=== PATIENT | female | born 1970 | race Caucasian/White ===

== ENCOUNTER 2021-03-07 16:11 | Emergency (ER) | payer BC ==
[2021-03-07 16:44] VITALS: BP 140/96; PULSE 86; RESP 16; TEMP 98.1
[2021-03-07] MEDS ORDERED: IBUPROFEN 600 MG TAB PO STA (17:09)
--- NOTE | 2021-03-07 17:30 | ED ---
Lower Extremity Injury HPI - General Chief Complaint: Extremity Injury, Lower Stated Complaint: Knee Injury Time Seen by Provider: 03/07/21 16:47 Source: patient, family Mode of arrival: wheelchair Limitations: no limitations - History of Present Illness Initial Comments: 50-year-old male presents to emergency department with a chief complaint of right knee pain. Patient reports that incident occurred last night when she suffered a trip and fall and fell directly on the right knee. Patient reports the pain is located directly on the knee without any radiation. She reports limited range of motion with full extension and flexion of the knee. She denies any paresthesias or weakness to the knee. She denies any erythema or ecchymosis but does report minimal swelling to right knee. She denies taking medication to alleviate the symptoms. Pain exacerbated with weightbearing or palpation to the region. Denies taking medications to alleviate the symptoms. - Related Data Allergies Allergy/AdvReac Type Severity Reaction Status Date / Time sulfamethoxazole Allergy Swelling Verified 03/07/21 16:39 [From Bactrim] trimethoprim [From Bactrim] Allergy Swelling Verified 03/07/21 16:39 Review of Systems ROS Statement: Those systems with pertinent positive or pertinent negative responses have been documented in the HPI. ROS Other: All systems not noted in ROS Statement are negative. Past Medical History Past Medical History: No Reported History History of Any Multi-Drug Resistant Organisms: None Reported Past Surgical History: Orthopedic Surgery, Tonsillectomy Additional Past Surgical History / Comment(s): brain surgery Past Psychological History: No Psychological Hx Reported Smoking Status: Never smoker Past Alcohol Use History: None Reported Past Drug Use History: None Reported General Exam Limitations: no limitations General appearance: alert, in no apparent distress, obese Head exam: Present: atraumatic, normocephalic, normal inspection Eye exam: Present: normal appearance Pupils: Present: normal accommodation ENT exam: Present: normal exam, normal oropharynx, mucous membranes moist Neck exam: Present: normal inspection, full ROM. Absent: tenderness Respiratory exam: Present: normal lung sounds bilaterally. Absent: respiratory distress Cardiovascular Exam: Present: regular rate, normal rhythm, normal heart sounds Extremities exam: Present: normal inspection, tenderness (Tenderness over the infrapatellar region of the right knee), normal capillary refill, other (Palpable DP and PT bilaterally. Sensation intact in the right leg). Absent: full ROM (Limited range of motion with full flexion and extension), pedal edema, joint swelling, calf tenderness Back exam: Present: normal inspection, full ROM. Absent: tenderness Neurological exam: Present: alert, oriented X3 Psychiatric exam: Present: normal affect, normal mood Skin exam: Present: warm, dry, intact, normal color Course Vital Signs 03/07/21 16:39 Temperature 98.1 F Pulse Rate 86 Respiratory 16 Rate Blood Pressure 140/96 O2 Sat by Pulse 98 Oximetry Medical Decision Making - Medical Decision Making 50-year-old male presents to emergency department with a chief complaint of right knee pain. On physical examination, patient is neurovascularly intact in the right lower extremity. Minimal swelling with no ecchymosis or erythema. Palpable DP and PT bilaterally. Henry wrap will be applied. She was advised to follow-up with an child welfare specialist. X-rays unremarkable. Return parameters were discussed with patient is an attending agreeable. Disposition Clinical Impression: Right knee injury, Right knee pain Disposition: HOME SELF-CARE Condition: Stable Instructions (If sedation given, give patient instructions): Knee Pain (ED) Additional Instructions: Please return to the Emergency Department if symptoms worsen or any other concerns. Follow up with an child welfare specialist. Is patient prescribed a controlled substance at d/c from ED?: No Referrals: Nonstaff,Physician [Primary Care Provider] - 1-2 days Vincenzo Lam DO [Doctor of Osteopathic Medicine] - 1-2 days Time of Disposition: 17:56
--- NOTE | 2021-03-07 17:33 | XR ---
EXAMINATION TYPE: XR knee complete RT DATE OF EXAM: 03/07/2021 COMPARISON: NONE HISTORY: Knee pain TECHNIQUE: 3 views FINDINGS: There is some spurring on the anterior patella. I see no fracture nor dislocation. Joint sp aces are normal. There is no sign of joint effusion. IMPRESSION: Negative right knee exam. No fracture.
== END 2021-03-07 18:11 | disposition home or self-care (01) ==
LOC: EC 16:11
DX: S89.91XA Unspecified injury of right lower leg, initial encounter (principal); M79.89 Other specified soft tissue disorders; Z88.1 Allergy status to other antibiotic agents; Z88.2 Allergy status to sulfonamides; Z90.89 Acquired absence of other organs; W01.0XXA Fall on same level from slipping, tripping and stumbling without subsequent striking against object, initial encounter
CPT/HCPCS: 99283

== ENCOUNTER 2021-07-15 04:06 | Emergency (ER) | payer BC ==
[2021-07-15] MEDS ORDERED: SODIUM CHLORIDE 0.9% 1,000 ML IV STA (04:18)
[2021-07-15] MEDS ORDERED: SODIUM CHLORIDE 0.9% 500 ML 500 ML IV STA (04:18)
[2021-07-15] MEDS ORDERED: KETOROLAC 15 MG/ML 1 ML VIAL IVP STA (04:19)
[2021-07-15] MEDS ORDERED: diphenhydrAMINE 50 MG/ML 1 ML VIAL IVP STA (04:19)
--- NOTE | 2021-07-15 04:19 | ED ---
Weakness HPI - General Stated complaint: Numbness Time Seen by Provider: 07/15/21 04:11 Source: RN notes reviewed, old records reviewed Limitations: no limitations - History of Present Illness Initial comments: This is a 50-year-old female with multiple in specific complaints. Complex and is complaining of tingling and occasional weakness throughout her body. No headaches. She does have prior history of similar complaint no prior ER visits for similar complaint. MD Complaint: generalized weakness -: days(s) Location: generalized Severity: mild Severity scale (1-10): 2 Quality: tingling, numbness Consistency: intermittent Improves with: none Worsens with: none Context: history of similar Associated Symptoms: denies other symptoms - Related Data Previous Rx's Medication Instructions Recorded Ibuprofen [Motrin] 600 mg PO Q8HR PRN #30 tab 03/07/21 predniSONE 50 mg PO DAILY #5 tab 07/15/21 Allergies Allergy/AdvReac Type Severity Reaction Status Date / Time sulfamethoxazole Allergy Swelling Verified 03/07/21 16:39 [From Bactrim] trimethoprim [From Bactrim] Allergy Swelling Verified 03/07/21 16:39 Review of Systems ROS Statement: Those systems with pertinent positive or pertinent negative responses have been documented in the HPI. ROS Other: All systems not noted in ROS Statement are negative. Past Medical History Past Medical History: No Reported History History of Any Multi-Drug Resistant Organisms: None Reported Past Surgical History: Orthopedic Surgery, Tonsillectomy Additional Past Surgical History / Comment(s): brain surgery Past Psychological History: No Psychological Hx Reported Smoking Status: Never smoker Past Alcohol Use History: None Reported Past Drug Use History: None Reported General Exam General appearance: alert, in no apparent distress Head exam: Present: atraumatic, normocephalic, normal inspection Eye exam: Present: normal appearance, PERRL, EOMI. Absent: scleral icterus, conjunctival injection, periorbital swelling ENT exam: Present: normal exam, mucous membranes moist Neck exam: Present: normal inspection. Absent: tenderness, meningismus, lymphadenopathy Respiratory exam: Present: normal lung sounds bilaterally. Absent: respiratory distress, wheezes, rales, rhonchi, stridor Cardiovascular Exam: Present: regular rate, normal rhythm, normal heart sounds. Absent: systolic murmur, diastolic murmur, rubs, gallop, clicks GI/Abdominal exam: Present: soft, normal bowel sounds. Absent: distended, tenderness, guarding, rebound, rigid Extremities exam: Present: normal inspection, full ROM, normal capillary refill. Absent: tenderness, pedal edema, joint swelling, calf tenderness Back exam: Present: normal inspection Neurological exam: Present: alert, oriented X3, CN II-XII intact Psychiatric exam: Present: normal affect, normal mood Skin exam: Present: warm, dry, intact, normal color. Absent: rash Course Vital Signs 07/15/21 05:17 Temperature 98.8 F Pulse Rate 93 Respiratory 18 Rate Blood Pressure 172/113 O2 Sat by Pulse 97 Oximetry - Reevaluation(s) Reevaluation #1: Medical record is reviewed Symptoms improved here in the ER Patient informed results and questions answered EKG Findings - EKG Comments: EKG Findings:: EKG shows sinus rhythm 83 VT 146 QRS 80 QTc 453 Medical Decision Making - Medical Decision Making 50 female to the emergency department for evaluation coming in for generalized tingling. No acute findings found here in the emergency department and patient can be discharged home - Lab Data Result diagrams: 07/15/21 05:36 07/15/21 05:36 Lab Results 07/15/21 07/15/21 07/15/21 Range/Units 05:36 05:36 05:36 WBC 8.5 (3.8-10.6) k/uL RBC 4.76 (3.80-5.40) m/uL Hgb 12.8 (11.4-16.0) gm/dL Hct 40.7 (34.0-46.0) % MCV 85.4 (80.0-100.0) fL MCH 26.8 (25.0-35.0) pg MCHC 31.4 (31.0-37.0) g/dL RDW 15.1 (11.5-15.5) % Plt Count 285 (150-450) k/uL MPV 9.2 Neutrophils % 76 % Lymphocytes % 16 % Monocytes % 5 % Eosinophils % 1 % Basophils % 0 % Neutrophils # 6.4 (1.3-7.7) k/uL Lymphocytes # 1.4 (1.0-4.8) k/uL Monocytes # 0.4 (0-1.0) k/uL Eosinophils # 0.1 (0-0.7) k/uL Basophils # 0.0 (0-0.2) k/uL Sodium 143 (137-145) mmol/L Potassium 4.3 (3.5-5.1) mmol/L Chloride 105 (98-107) mmol/L Carbon Dioxide 29 (22-30) mmol/L Anion Gap 9 mmol/L BUN 11 (7-17) mg/dL Creatinine 0.65 (0.52-1.04) mg/dL Est GFR (CKD-EPI)AfAm >90 (>60 ml/min/1.73 sqM) Est GFR (CKD-EPI)NonAf >90 (>60 ml/min/1.73 sqM) Glucose 125 H (74-99) mg/dL Calcium 9.7 (8.4-10.2) mg/dL Phosphorus 3.4 (2.5-4.5) mg/dL Magnesium 2.0 (1.6-2.3) mg/dL Total Bilirubin 0.4 (0.2-1.3) mg/dL AST 26 (14-36) U/L ALT 33 (4-34) U/L Alkaline Phosphatase 94 (38-126) U/L Troponin I (0.000-0.034) ng/mL NT-Pro-B Natriuret Pep pg/mL Total Protein 7.8 (6.3-8.2) g/dL Albumin 4.6 (3.5-5.0) g/dL Urine Color Colorless Urine Appearance Clear (Clear) Urine pH 5.5 (5.0-8.0) Ur Specific [place] 1.004 (1.001-1.035) Urine Protein Negative (Negative) Urine Glucose (UA) Negative (Negative) Urine Ketones Negative (Negative) Urine Blood Negative (Negative) Urine Nitrite Negative (Negative) Urine Bilirubin Negative (Negative) Urine Urobilinogen <2.0 (<2.0) mg/dL Ur Leukocyte Esterase Negative (Negative) 07/15/21 07/15/21 Range/Units 05:36 05:36 WBC (3.8-10.6) k/uL RBC (3.80-5.40) m/uL Hgb (11.4-16.0) gm/dL Hct (34.0-46.0) % MCV (80.0-100.0) fL MCH (25.0-35.0) pg MCHC (31.0-37.0) g/dL RDW (11.5-15.5) % Plt Count (150-450) k/uL MPV Neutrophils % % Lymphocytes % % Monocytes % % Eosinophils % % Basophils % % Neutrophils # (1.3-7.7) k/uL Lymphocytes # (1.0-4.8) k/uL Monocytes # (0-1.0) k/uL Eosinophils # (0-0.7) k/uL Basophils # (0-0.2) k/uL Sodium (137-145) mmol/L Potassium (3.5-5.1) mmol/L Chloride (98-107) mmol/L Carbon Dioxide (22-30) mmol/L Anion Gap mmol/L BUN (7-17) mg/dL Creatinine (0.52-1.04) mg/dL Est GFR (CKD-EPI)AfAm (>60 ml/min/1.73 sqM) Est GFR (CKD-EPI)NonAf (>60 ml/min/1.73 sqM) Glucose (74-99) mg/dL Calcium (8.4-10.2) mg/dL Phosphorus (2.5-4.5) mg/dL Magnesium (1.6-2.3) mg/dL Total Bilirubin (0.2-1.3) mg/dL AST (14-36) U/L ALT (4-34) U/L Alkaline Phosphatase (38-126) U/L Troponin I <0.012 (0.000-0.034) ng/mL NT-Pro-B Natriuret Pep 16 pg/mL Total Protein (6.3-8.2) g/dL Albumin (3.5-5.0) g/dL Urine Color Urine Appearance (Clear) Urine pH (5.0-8.0) Ur Specific [place] (1.001-1.035) Urine Protein (Negative) Urine Glucose (UA) (Negative) Urine Ketones (Negative) Urine Blood (Negative) Urine Nitrite (Negative) Urine Bilirubin (Negative) Urine Urobilinogen (<2.0) mg/dL Ur Leukocyte Esterase (Negative) - Radiology Data Radiology results: report reviewed (CT brain and chest x-ray is negative for acute disease), image reviewed Disposition Clinical Impression: Weakness Disposition: HOME SELF-CARE Condition: Fair Instructions (If sedation given, give patient instructions): Weakness (ED) Prescriptions: predniSONE 50 mg PO DAILY #5 tab Is patient prescribed a controlled substance at d/c from ED?: No Referrals: Nonstaff,Physician [Primary Care Provider] - 1-2 days
--- NOTE | 2021-07-15 04:32 | XR ---
EXAMINATION TYPE: XR chest 2V DATE OF EXAM: 07/15/2021 COMPARISON: NONE HISTORY: Weakness TECHNIQUE: 2 views FINDINGS: Heart and mediastinum are normal. Lungs are clear. Diaphragm is normal. Bony thorax is norm al. IMPRESSION: Normal chest.
--- NOTE | 2021-07-15 04:51 | CT ---
EXAMINATION TYPE: CT brain wo con DATE OF EXAM: 07/15/2021 COMPARISON: None HISTORY: head pressure/pain. numbness. prior brain surgery CT DLP: 1048.4 mGycm Automated exposure control for dose reduction was used. Ventricles have normal size. There is no mass effect or midline shift. There is no sign of intracrani al hemorrhage. The calvarium is intact there is no evidence of cerebral edema. Skull base is intact. There is normal aeration of the mastoid sinuses. IMPRESSION: Negative unenhanced head CT scan.
[2021-07-15 05:20] VITALS: BP 172/113; PULSE 93; RESP 18; TEMP 98.8
[2021-07-15 06:10] LABS: Basophils % (A) 0 %; Eosinophils # (A) 0.1 k/uL (0-0.7); Eosinophils % (A) 1 %; HCT 40.7 % (34.0-46.0); HGB 12.8 gm/dL (11.4-16.0); Lymphocytes # (A) 1.4 k/uL (1.0-4.8); Lymphocytes % (A) 16 %; MCH 26.8 pg (25.0-35.0); MCHC 31.4 g/dL (31.0-37.0); MCV 85.4 fL (80.0-100.0); Mean Platelet Volume 9.2; Monocytes # (A) 0.4 k/uL (0-1.0); Monocytes % (A) 5 %; Neutrophils # (A) 6.4 k/uL (1.3-7.7); Neutrophils % (A) 76 %; Platelet Count 285 k/uL (150-450); RBC 4.76 m/uL (3.80-5.40); RDW 15.1 % (11.5-15.5); WBC 8.5 k/uL (3.8-10.6)
[2021-07-15 06:26] LABS: Appearance,Urine Clear (Clear); Bilirubin,Urine Negative (Negative); Blood,Urine Negative (Negative); Color,Urine Colorless; Glucose,Urine (UA) Negative (Negative); Ketones,Urine Negative (Negative); Leukocyte Esterase,Urine Negative (Negative); Nitrite,Urine Negative (Negative); PH, Urine 5.5 (5.0-8.0); Protein,Urine Negative (Negative); Specific Gravity,Urine 1.004 (1.001-1.035); Urobilinogen,Urine <2.0 mg/dL (<2.0)
[2021-07-15 06:30] LABS: ALT 33 U/L (4-34); AST 26 U/L (14-36); African American GFR (CKD) >90 (>60 ml/min/1.73 sqM); Albumin 4.6 g/dL (3.5-5.0); Alkaline Phosphatase 94 U/L (38-126); Anion Gap 9 mmol/L; Blood Urea Nitrogen 11 mg/dL (7-17); Calcium 9.7 mg/dL (8.4-10.2); Carbon Dioxide 29 mmol/L (22-30); Chloride 105 mmol/L (98-107); Glucose 125 mg/dL (74-99); Non-African American GFR(CKD) >90 (>60 ml/min/1.73 sqM); Phosphorus 3.4 mg/dL (2.5-4.5); Potassium 4.3 mmol/L (3.5-5.1); Sodium 143 mmol/L (137-145); Total Bilirubin 0.4 mg/dL (0.2-1.3); Total Protein 7.8 g/dL (6.3-8.2)
== END 2021-07-15 06:55 | disposition home or self-care (01) ==
LOC: EC 04:06
DX: R53.1 Weakness (principal)
CPT/HCPCS: 36415; 93005; 83880; 80053; 83735; 84100; 84484; 85025; 81003; 71046; 70450; 99285; 96374; 96375; J1200; J1885

== ENCOUNTER 2022-07-11 20:25 | Emergency (ER) | payer BC ==
[2022-07-11 21:26] LABS: Basophils % (A) 1 %; Eosinophils # (A) 0.2 k/uL (0-0.7); Eosinophils % (A) 2 %; HCT 39.7 % (34.0-46.0); HGB 13.3 gm/dL (11.4-16.0); Lymphocytes # (A) 2.5 k/uL (1.0-4.8); Lymphocytes % (A) 27 %; MCH 28.1 pg (25.0-35.0); MCHC 33.5 g/dL (31.0-37.0); MCV 83.8 fL (80.0-100.0); Mean Platelet Volume 10.1; Monocytes # (A) 0.5 k/uL (0-1.0); Monocytes % (A) 5 %; Neutrophils # (A) 5.9 k/uL (1.3-7.7); Neutrophils % (A) 63 %; Platelet Count 235 k/uL (150-450); RBC 4.73 m/uL (3.80-5.40); RDW 13.9 % (11.5-15.5); WBC 9.3 k/uL (3.8-10.6)
[2022-07-11 21:39] LABS: Appearance,Urine Clear (Clear); Bacteria,Urine Rare /hpf; Bilirubin,Urine Negative (Negative); Blood,Urine Negative (Negative); Color,Urine Colorless; Glucose,Urine (UA) Negative (Negative); Hyaline Casts,Urine 1 /lpf (0-2); Ketones,Urine Negative (Negative); Leukocyte Esterase,Urine Moderate (Negative); Mucus,Urine Rare /hpf; Nitrite,Urine Negative (Negative); PH, Urine 5.5 (5.0-8.0); Protein,Urine Negative (Negative); RBC,Urine 1 /hpf (0-5); Specific Gravity,Urine 1.007 (1.001-1.035); Squamous Epithelial Cell,Urine 3 /hpf (0-4); Urobilinogen,Urine <2.0 mg/dL (<2.0); WBC,Urine 9 /hpf (0-5)
[2022-07-11 21:44] LABS: ALT 34 U/L (4-34); AST 22 U/L (14-36); African American GFR (CKD) >90 (>60 ml/min/1.73 sqM); Albumin 4.4 g/dL (3.5-5.0); Alkaline Phosphatase 83 U/L (38-126); Amylase 50 U/L (30-110); Anion Gap 7 mmol/L; Blood Urea Nitrogen 13 mg/dL (7-17); Calcium 9.4 mg/dL (8.4-10.2); Carbon Dioxide 30 mmol/L (22-30); Chloride 104 mmol/L (98-107); Glucose 88 mg/dL (74-99); Lipase 111 U/L (23-300); Non-African American GFR(CKD) >90 (>60 ml/min/1.73 sqM); Potassium 3.7 mmol/L (3.5-5.1); Sodium 141 mmol/L (137-145); Total Bilirubin 0.4 mg/dL (0.2-1.3); Total Protein 7.3 g/dL (6.3-8.2)
--- NOTE | 2022-07-11 23:47 | US ---
EXAMINATION TYPE: US abdomen limited DATE OF EXAM: 07/11/2022 COMPARISON: NONE CLINICAL HISTORY: RUQ pain. RUQ pain TECHNIQUE: Multiple sonographic images of the right upper quadrant are obtained. FINDINGS: EXAM MEASUREMENTS: Liver Length: 22.7 cm Gallbladder Wall: 0.13 cm CBD: 0.22 cm Right Kidney: 12.4 x 6.7 x 6.1 cm HOSTING ENGINEER NOTES: Pancreas: Obscured by bowel gas Liver: Heterogeneous and difficult to penetrate Gallbladder: wnl Evidence for sonographic Billingsley's sign: No CBD: not well visualized, appears wnl Right Kidney: wnl IMPRESSION: Negative exam. No gallstones or dilated ducts. No focal liver defect.
[2022-07-11] MEDS ORDERED: ORPHENADRINE 30 MG/ML 2 ML VIAL IVP STA (23:53)
[2022-07-11] MEDS ORDERED: KETOROLAC 15 MG/ML 1 ML VIAL IVP STA (23:53)
--- NOTE | 2022-07-12 01:11 | ED ---
Abdominal Pain HPI - General Chief Complaint: Abdominal Pain Stated Complaint: Right Side Pain, Bloating, Tail bone Pain Time Seen by Provider: 07/11/22 22:44 Source: patient Mode of arrival: ambulatory Limitations: no limitations - History of Present Illness Initial Comments: Patient is a 51-year-old female presenting with chief complaint of right side pain. Pain is been ongoing for the last month. Patient states that the pain is predominantly in the flank, she also occasionally has right upper quadrant pain. No fever, chills, nausea, vomiting, chest pain, difficulty breathing. Patient also states that her tailbone has been hurting her when she sits for long periods of time. Denies any injury or trauma. No loss of bowel or bladder co ntrol or saddle paresthesia. - Related Data Previous Rx's Medication Instructions Recorded Ibuprofen [Motrin] 600 mg PO Q8HR PRN #30 tab 03/07/21 predniSONE 50 mg PO DAILY #5 tab 07/15/21 Allergies Allergy/AdvReac Type Severity Reaction Status Date / Time sulfamethoxazole Allergy Swelling Verified 03/07/21 16:39 [From Bactrim] trimethoprim [From Bactrim] Allergy Swelling Verified 03/07/21 16:39 Review of Systems ROS Statement: Those systems with pertinent positive or pertinent negative responses have been documented in the HPI. ROS Other: All systems not noted in ROS Statement are negative. 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 History of Any Multi-Drug Resistant Organisms: None Reported Past Surgical History: Orthopedic Surgery, Tonsillectomy Additional Past Surgical History / Comment(s): brain surgery Past Psychological History: No Psychological Hx Reported Smoking Status: Never smoker Past Alcohol Use History: None Reported Past Drug Use History: None Reported General Exam Limitations: no limitations General appearance: alert, in no apparent distress Head exam: Present: atraumatic, normocephalic, normal inspection Eye exam: Present: normal appearance Neck exam: Present: normal inspection, full ROM Respiratory exam: Present: normal lung sounds bilaterally. Absent: respiratory distress, wheezes, rales, rhonchi, stridor Cardiovascular Exam: Present: regular rate, normal rhythm, normal heart sounds. Absent: systolic murmur, diastolic murmur, rubs, gallop, clicks GI/Abdominal exam: Present: soft, tenderness (R sided). Absent: distended, guarding, rebound, rigid Back exam: Present: normal inspection Neurological exam: Present: alert, oriented X3, CN II-XII intact Psychiatric exam: Present: normal affect, normal mood Skin exam: Present: warm, dry, intact, normal color. Absent: rash Course Vital Signs 07/11/22 07/12/22 20:32 01:36 Temperature 98 F 97.6 F Pulse Rate 90 82 Respiratory 16 14 Rate Blood Pressure 184/106 148/76 O2 Sat by Pulse 98 99 Oximetry Medical Decision Making - Medical Decision Making Was pt. sent in by a medical professional or institution (, PA, QUALITY MEASUREMENT SPECIALIST, urgent care, hospital, or group home...) When possible be specific @ -No Did you speak to anyone other than the patient for history (EMS, parent, family, police, friend...)? What history was obtained from this source @ -No Did you review nursing and triage notes (agree or disagree)? Why? @ -I reviewed and agree with nursing and triage notes Were old charts reviewed (outside hosp., previous admission, EMS record, old EKG, old radiological studies, urgent care reports/EKG's, group home records)? Report findings @ -No old charts were reviewed Differential Diagnosis (chest pain, altered mental status, abdominal pain women, abdominal pain men, vaginal bleeding, weakness, fever, dyspnea, syncope, headache, dizziness, GI bleed, back pain, seizure, CVA, palpatations, mental health)? @ - MDM Differential Back Pain: Strain, zoster, cauda equina syndrome, discitis, fracture, subluxation, disc herniation, DJD, spinal stenosis, peptic ulcer disease, pyelonephritis, kidney stone this is not meant to be an all-inclusive list. EKG interpreted by me (3pts min.). @ -As above X-rays interpreted by me (1pt min.). @ -X-ray of the lumbar spine shows no acute process CT interpreted by me (1pt min.). @ -None done U/S interpreted by me (1pt. min.). @ -No, radiologist report is reviewed. Negative exam. No gallstones or dilated ducts. No focal liver defect What testing was considered but not performed or refused? (CT, X-rays, U/S, labs)? Why? @ -None What meds were considered but not given or refused? Why? @ -None Did you discuss the management of the patient with other professionals (pr ofessionals i.e. , PA, QUALITY MEASUREMENT SPECIALIST, lab, RT, psych nurse, director social service, industrial gas production operator, teacher, chief fundraising officer, bilingual case manager)? Give summary @ -No Was smoking cessation discussed for >3mins.? @ -No Was critical care preformed (if so, how long)? @ -No Were there social determinants of health that impacted care today? How? (Homelessness, low income, unemployed, alcoholism, drug addiction, transport ation, low edu. Level, literacy, decrease access to med. care, fci, rehab)? @ -No Was there de-escalation of care discussed even if they declined (Discuss DNR or withdrawal of care, Hospice)? DNR status @ -No What co-morbidities impacted this encounter? (DM, HTN, Smoking, COPD, CAD, Cancer, CVA, ARF, Chemo, Hep., AIDS, mental health diagnosis, sleep apnea, morbid obesity)? @ -None Was patient admitted / discharged? Hospital course, mention meds given and route, prescriptions, significant lab abnormalities, going to OR and other pertinent info. @ -Patient is a 51-year-old female presenting with chief complaint of right- sided flank pain that is been ongoing for the last month. Physical examination is unremarkable. Lab work shows is essentially unremarkable. Urine shows signs of contamination, sent for culture. Ultrasound of the abdomen shows no acute process. Lumbar spine shows no evidence of fracture. Patient reports improvement after Toradol and Norflex. Pain is likely musculoskeletal in origin. Educated on supportive treatment.Follow-up with PCP. Report back to ER with any new or worsening symptoms. Discussed return parameters and answered all questions. Patient conveyed verbal understanding and agreed to the plan. I discussed this case in detail with my attending Dr. Laura Undiagnosed new problem with uncertain prognosis? @ -No Drug Therapy requiring intensive monitoring for toxicity (Heparin, Nitro, Insulin, Cardizem)? @ -No Were any procedures done? @ -No Diagnosis/symptom? @ -muscloskeletal pain Acute, or Chronic, or Acute on Chronic? @ -Acute Uncomplicated (without systemic symptoms) or Complicated (systemic symptoms)? @ -Uncomplicated Side effects of treatment? @ -No Exacerbation, Progression, or Severe Exacerbation? @ -No Poses a threat to life or bodily function? How? (Chest pain, [place], NM, pneumonia, PE, COPD, DKA, ARF, appy, cholecystitis, CVA, Diverticulitis, Homicidal, Suicidal, threat to staff... and all critical care pts) @ -No - Lab Data Result diagrams: 07/11/22 20:37 07/11/22 20:37 Lab Results 07/11/22 07/11/22 07/11/22 Range/Units 20:37 20:37 20:37 WBC 9.3 (3.8-10.6) k/uL RBC 4.73 (3.80-5.40) m/uL Hgb 13.3 (11.4-16.0) gm/dL Hct 39.7 (34.0-46.0) % MCV 83.8 (80.0-100.0) fL MCH 28.1 (25.0-35.0) pg MCHC 33.5 (31.0-37.0) g/dL RDW 13.9 (11.5-15.5) % Plt Count 235 (150-450) k/uL MPV 10.1 Neutrophils % 63 % Lymphocytes % 27 % Monocytes % 5 % Eosinophils % 2 % Basophils % 1 % Neutrophils # 5.9 (1.3-7.7) k/uL Lymphocytes # 2.5 (1.0-4.8) k/uL Monocytes # 0.5 (0-1.0) k/uL Eosinophils # 0.2 (0-0.7) k/uL Basophils # 0.0 (0-0.2) k/uL Sodium 141 (137-145) mmol/L Potassium 3.7 (3.5-5.1) mmol/L Chloride 104 (98-107) mmol/L Carbon Dioxide 30 (22-30) mmol/L Anion Gap 7 mmol/L BUN 13 (7-17) mg/dL Creatinine 0.70 (0.52-1.04) mg/dL Est GFR (CKD-EPI)AfAm >90 (>60 ml/min/1.73 sqM) Est GFR (CKD-EPI)NonAf >90 (>60 ml/min/1.73 sqM) Glucose 88 (74-99) mg/dL Calcium 9.4 (8.4-10.2) mg/dL Total Bilirubin 0.4 (0.2-1.3) mg/dL AST 22 (14-36) U/L ALT 34 (4-34) U/L Alkaline Phosphatase 83 (38-126) U/L Troponin I <0.012 (0.000-0.034) ng/mL Total Protein 7.3 (6.3-8.2) g/dL Albumin 4.4 (3.5-5.0) g/dL Amylase 50 (30-110) U/L Lipase 111 (23-300) U/L Urine Color Urine Appearance (Clear) Urine pH (5.0-8.0) Ur Specific [place] (1.001-1.035) Urine Protein (Negative) Urine Glucose (UA) (Negative) Urine Ketones (Negative) Urine Blood (Negative) Urine Nitrite (Negative) Urine Bilirubin (Negative) Urine Urobilinogen (<2.0) mg/dL Ur Leukocyte Esterase (Negative) Urine RBC (0-5) /hpf Urine WBC (0-5) /hpf Ur Squamous Epith Cells (0-4) /hpf Urine Bacteria (None) /hpf Hyaline Casts (0-2) /lpf Urine Mucus (None) /hpf Urine HCG, Qual (Not Detectd) 07/11/22 07/11/22 Range/Units 21:01 21:01 WBC (3.8-10.6) k/uL RBC (3.80-5.40) m/uL Hgb (11.4-16.0) gm/dL Hct (34.0-46.0) % MCV (80.0-100.0) fL MCH (25.0-35.0) pg MCHC (31.0-37.0) g/dL RDW (11.5-15.5) % Plt Count (150-450) k/uL MPV Neutrophils % % Lymphocytes % % Monocytes % % Eosinophils % % Basophils % % Neutrophils # (1.3-7.7) k/uL Lymphocytes # (1.0-4.8) k/uL Monocytes # (0-1.0) k/uL Eosinophils # (0-0.7) k/uL Basophils # (0-0.2) k/uL Sodium (137-145) mmol/L Potassium (3.5-5.1) mmol/L Chloride (98-107) mmol/L Carbon Dioxide (22-30) mmol/L Anion Gap mmol/L BUN (7-17) mg/dL Creatinine (0.52-1.04) mg/dL Est GFR (CKD-EPI)AfAm (>60 ml/min/1.73 sqM) Est GFR (CKD-EPI)NonAf (>60 ml/min/1.73 sqM) Glucose (74-99) mg/dL Calcium (8.4-10.2) mg/dL Total Bilirubin (0.2-1.3) mg/dL AST (14-36) U/L ALT (4-34) U/L Alkaline Phosphatase (38-126) U/L Troponin I (0.000-0.034) ng/mL Total Protein (6.3-8.2) g/dL Albumin (3.5-5.0) g/dL Amylase (30-110) U/L Lipase (23-300) U/L Urine Color Colorless Urine Appearance Clear (Clear) Urine pH 5.5 (5.0-8.0) Ur Specific [place] 1.007 (1.001-1.035) Urine Protein Negative (Negative) Urine Glucose (UA) Negative (Negative) Urine Ketones Negative (Negative) Urine Blood Negative (Negative) Urine Nitrite Negative (Negative) Urine Bilirubin Negative (Negative) Urine Urobilinogen <2.0 (<2.0) mg/dL Ur Leukocyte Esterase Moderate H (Negative) Urine RBC 1 (0-5) /hpf Urine WBC 9 H (0-5) /hpf Ur Squamous Epith Cells 3 (0-4) /hpf Urine Bacteria Rare H (None) /hpf Hyaline Casts 1 (0-2) /lpf Urine Mucus Rare H (None) /hpf Urine HCG, Qual Not Detected (Not Detectd) Disposition Clinical Impression: Musculoskeletal pain Disposition: HOME SELF-CARE Condition: Good Instructions (If sedation given, give patient instructions): Musculoskeletal Pain (ED) Additional Instructions: Follow-up with PCP. Report back to ER with any new or worsening symptoms. Take Motrin and Tylenol as needed for pain control. Is patient prescribed a controlled substance at d/c from ED?: No Referrals: Nonstaff,Physician [Primary Care Provider] - 1-2 days Time of Disposition: 01:18
--- NOTE | 2022-07-12 01:11 | XR ---
EXAMINATION TYPE: XR lumbosacral spine min 4V DATE OF EXAM: 07/12/2022 COMPARISON: NONE HISTORY: Pain TECHNIQUE: 5 views FINDINGS: The lumbar vertebrae have normal alignment. Posterior elements are intact. No compression f racture. There is minor spurring at L4-5. Sacroiliac joints are intact. IMPRESSION: Negative lumbar spine exam. No fracture
[2022-07-12 01:48] VITALS: BP 148/76; PULSE 82; RESP 14; TEMP 97.6
== END 2022-07-12 01:49 | disposition home or self-care (01) ==
LOC: EC 20:25
DX: M79.18 Myalgia, other site (principal); Z88.2 Allergy status to sulfonamides
CPT/HCPCS: 36415; 72110; 76705; 80053; 81001; 81025; 82150; 83690; 84484; 85025; 96374; 96375; 99284

== ENCOUNTER 2023-01-17 16:32 | Emergency (ER) | payer BC ==
[2023-01-17 16:38] VITALS: PULSE 78; RESP 20; TEMP 98.7
[2023-01-17 18:36] VITALS: BP 151/91
--- NOTE | 2023-01-17 18:58 | ED ---
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 Patient states that she follows with a neurologist for this and she has been told not to sleep on her left side due to it exacerbating her symptoms. Patient reports that this morning she woke up early and wanted to go back to sleep for a couple of hours, she rolled over on her left side but then noted that her left arm was tingling and seemed to be throbbing or pulsating in her hand. This is very atypical for her. She also noted some pain in her upper left chest which seemed to be worse when she turned her head to the left. No shortness of breath diaphoresis or lightheadedness. Symptoms resolved within 30 minutes of waking. Patient states she then didn't feel up to going to work because she was tired and she got very nervous about her symptoms and thought she should come to the ER for evaluation. - Related Data Previous Rx's Medication Instructions Recorded Ibuprofen [Motrin] 600 mg PO Q8HR PRN #30 tab 03/07/21 predniSONE 50 mg PO DAILY #5 tab 07/15/21 Allergies Allergy/AdvReac Type Severity Reaction Status Date / Time sulfamethoxazole Allergy Swelling Verified 01/17/23 16:38 [From Bactrim] trimethoprim [From Bactrim] Allergy Swelling Verified 01/17/23 16:38 Review of Systems ROS Statement: Those systems with pertinent positive or pertinent negative responses have been documented in the HPI. ROS Other: All systems not noted in ROS Statement are negative. 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 Patient is nontoxic and well-hydrated and is in no distress. BMI 39 HENT: Normocephalic, Atraumatic. EYES: PERRL, EOMI PULMONARY: Unlabored respirations. No audible rales rhonchi or wheezing was noted. CARDIOVASCULAR: There is a regular rate and rhythm without any murmurs gallops or rubs. ABDOMEN: Soft and nontender with normal bowel sounds. SKIN: Skin is clear with no lesions or rashes and otherwise unremarkable. : Deferred NEUROLOGIC: Patient is alert and oriented x3. Moving all extremities spontaneously Positive tinnel's sign left hand for carpal tunnel MUSCULOSKELETAL: Normal extremities with adequate strength and full range of motion. No lower extremity swelling or edema. No calf tenderness. PSYCHIATRIC: Normal psychiatric evaluation. Limitations: no limitations Course Vital Signs 01/17/23 01/17/23 16:35 18:31 Temperature 98.7 F Pulse Rate 78 Respiratory 20 Rate Blood Pressure 168/96 151/91 O2 Sat by Pulse 99 Oximetry Medical Decision Making - Medical Decision Making The patient was seen and evaluated history is obtained from the patient. 52-year-old female with known slipped disc in her neck and neuropathy in the arm slept on her arm away she is not supposed to and had pain and tingling in the arm. Also some pain across the chest. Cardiac workup was negative. At this time I don't feel her discomfort is cardiac in nature likely neurologic in nature recommended follow with her primary care physician. Was pt. sent in by a medical professional or institution (, PA, DECORATING INSTRUCTOR, urgent care, hospital, or senior care...) When possible be specific @ -No Did you speak to anyone other than the patient for history (EMS, parent, family, police, friend...)? What history was obtained from this source @ -No Did you review nursing and triage notes (agree or disagree)? Why? @ -I reviewed and agree with nursing and triage notes Were old charts reviewed (outside hosp., previous admission, EMS record, old EKG, old radiological studies, urgent care reports/EKG's, senior care records)? Report findings @ -No old charts were reviewed Differential Diagnosis (chest pain, altered mental status, abdominal pain women, abdominal pain men, vaginal bleeding, weakness, fever, dyspnea, syncope, headache, dizziness, GI bleed, back pain, seizure, CVA, palpatations, mental health, musculoskeletal)? @ -Differential Chest Pain: Stable Angina, Unstable Angina, STEMI, NSTEMI Aortic Dissection, Pneumothorax, Musculoskeletal, Esophageal Spasm GERD, Cholecystitis, Pancreatitis, Zoster, this is not meant to be an all-inclusive list. EKG interpreted by me (3pts min.). @ -As above X-rays interpreted by me (1pt min.). @ -None done CT interpreted by me (1pt min.). @ -None done U/S interpreted by me (1pt. min.). @ -None done What testing was considered but not performed or refused? (CT, X-rays, U/S, labs)? Why? @ -None What meds were considered but not given or refused? Why? @ -None Did you discuss the management of the patient with other professionals (professionals i.e. , PA, DECORATING INSTRUCTOR, lab, RT, psych nurse, social media designer, feed and farm management adviser, teacher, highway patrol officer, case specialist)? Give summary @ -No Was smoking cessation discussed for >3mins.? @ -No Was critical care preformed (if so, how long)? @ -No Were there social determinants of health that impacted care today? How? (Homelessness, low income, unemployed, alcoholism, drug addiction, transportation, low edu. Level, literacy, decrease access to med. care, [facility], rehab)? @ -No Was there de-escalation of care discussed even if they declined (Discuss DNR or withdrawal of care, Hospice)? DNR status @ -No What co-morbidities impacted this encounter? (DM, HTN, Smoking, COPD, CAD, Cancer, CVA, ARF, Chemo, Hep., AIDS, mental health diagnosis, sleep apnea, morbid obesity)? @ -None Was patient admitted / discharged? Hospital course, mention meds given and route, prescriptions, significant lab abnormalities, going to OR and other pertinent info. @Discharge] Undiagnosed new problem with uncertain prognosis? @ -No Drug Therapy requiring intensive monitoring for toxicity (Heparin, Nitro, Insulin, Cardizem)? @ -No Were any procedures done? @ -No Diagnosis/symptom? @ -default Acute, or Chronic, or Acute on Chronic? @ -default Uncomplicated (without systemic symptoms) or Complicated (systemic symptoms)? @ -default Side effects of treatment? @ -No Exacerbation, Progression, or Severe Exacerbation? @ -No Poses a threat to life or bodily function? How? (Chest pain, [place], [place], pneumonia, PE, COPD, DKA, ARF, appy, cholecystitis, CVA, Diverticulitis, Homicidal, Suicidal, threat to staff... and all critical care pts) @ -No - Lab Data Result diagrams: 01/17/23 18:46 01/17/23 18:46 Lab Results 01/17/23 01/17/23 01/17/23 Range/Units 18:46 18:46 18:46 WBC 8.4 (3.8-10.6) k/uL RBC 4.65 (3.80-5.40) m/uL Hgb 13.5 (11.4-16.0) gm/dL Hct 40.3 (34.0-46.0) % MCV 86.6 (80.0-100.0) fL MCH 29.0 (25.0-35.0) pg MCHC 33.4 (31.0-37.0) g/dL RDW 14.3 (11.5-15.5) % Plt Count 216 (150-450) k/uL MPV 10.0 Neutrophils % 67 % Lymphocytes % 23 % Monocytes % 5 % Eosinophils % 3 % Basophils % 0 % Neutrophils # 5.6 (1.3-7.7) k/uL Lymphocytes # 1.9 (1.0-4.8) k/uL Monocytes # 0.5 (0-1.0) k/uL Eosinophils # 0.2 (0-0.7) k/uL Basophils # 0.0 (0-0.2) k/uL PT 9.7 (9.0-12.0) sec INR 0.9 (<1.2) APTT 24.6 (22.0-30.0) sec Sodium 139 (137-145) mmol/L Potassium 4.0 (3.5-5.1) mmol/L Chloride 102 (98-107) mmol/L Carbon Dioxide 27 (22-30) mmol/L Anion Gap 10 mmol/L BUN 13 (7-17) mg/dL Creatinine 0.60 (0.52-1.04) mg/dL Est GFR (CKD-EPI)AfAm >90 (>60 ml/min/1.73 sqM) Est GFR (CKD-EPI)NonAf >90 (>60 ml/min/1.73 sqM) Glucose 90 (74-99) mg/dL Calcium 9.3 (8.4-10.2) mg/dL Magnesium 2.0 (1.6-2.3) mg/dL Total Bilirubin 0.4 (0.2-1.3) mg/dL AST 28 (14-36) U/L ALT 37 H (4-34) U/L Alkaline Phosphatase 89 (38-126) U/L Troponin I (0.000-0.034) ng/mL Total Protein 7.3 (6.3-8.2) g/dL Albumin 4.2 (3.5-5.0) g/dL 01/17/23 Range/Units 18:46 WBC (3.8-10.6) k/uL RBC (3.80-5.40) m/uL Hgb (11.4-16.0) gm/dL Hct (34.0-46.0) % MCV (80.0-100.0) fL MCH (25.0-35.0) pg MCHC (31.0-37.0) g/dL RDW (11.5-15.5) % Plt Count (150-450) k/uL MPV Neutrophils % % Lymphocytes % % Monocytes % % Eosinophils % % Basophils % % Neutrophils # (1.3-7.7) k/uL Lymphocytes # (1.0-4.8) k/uL Monocytes # (0-1.0) k/uL Eosinophils # (0-0.7) k/uL Basophils # (0-0.2) k/uL PT (9.0-12.0) sec INR (<1.2) APTT (22.0-30.0) sec Sodium (137-145) mmol/L Potassium (3.5-5.1) mmol/L Chloride (98-107) mmol/L Carbon Dioxide (22-30) mmol/L Anion Gap mmol/L BUN (7-17) mg/dL Creatinine (0.52-1.04) mg/dL Est GFR (CKD-EPI)AfAm (>60 ml/min/1.73 sqM) Est GFR (CKD-EPI)NonAf (>60 ml/min/1.73 sqM) Glucose (74-99) mg/dL Calcium (8.4-10.2) mg/dL Magnesium (1.6-2.3) mg/dL Total Bilirubin (0.2-1.3) mg/dL AST (14-36) U/L ALT (4-34) U/L Alkaline Phosphatase (38-126) U/L Troponin I <0.012 (0.000-0.034) ng/mL Total Protein (6.3-8.2) g/dL Albumin (3.5-5.0) g/dL Disposition Clinical Impression: Chest wall pain Disposition: HOME SELF-CARE Condition: Stable Instructions (If sedation given, give patient instructions): Chest Pain (ED) Is patient prescribed a controlled substance at d/c from ED?: No Referrals: None,Stated [Primary Care Provider] - 1-2 days
[2023-01-17 19:15] LABS: Basophils % (A) 0 %; Eosinophils # (A) 0.2 k/uL (0-0.7); Eosinophils % (A) 3 %; HCT 40.3 % (34.0-46.0); HGB 13.5 gm/dL (11.4-16.0); Lymphocytes # (A) 1.9 k/uL (1.0-4.8); Lymphocytes % (A) 23 %; MCHC 33.4 g/dL (31.0-37.0); MCV 86.6 fL (80.0-100.0); Monocytes # (A) 0.5 k/uL (0-1.0); Monocytes % (A) 5 %; Neutrophils # (A) 5.6 k/uL (1.3-7.7); Neutrophils % (A) 67 %; Platelet Count 216 k/uL (150-450); RBC 4.65 m/uL (3.80-5.40); RDW 14.3 % (11.5-15.5); WBC 8.4 k/uL (3.8-10.6)
--- NOTE | 2023-01-17 19:19 | XR ---
EXAMINATION TYPE: XR chest 2V DATE OF EXAM: 01/17/2023 COMPARISON: 07/15/2021 INDICATION: Chest and neck pain TECHNIQUE: Frontal and lateral views of the chest are obtained. FINDINGS: The heart size is normal. The pulmonary vasculature is normal. The lungs are clear. IMPRESSION: 1. No acute pulmonary process.
[2023-01-17 19:28] LABS: INR 0.9 (<1.2); Partial Thromboplastin Time 24.6 sec (22.0-30.0); Prothrombin Time 9.7 sec (9.0-12.0)
[2023-01-17 19:35] LABS: ALT 37 U/L (4-34); AST 28 U/L (14-36); African American GFR (CKD) >90 (>60 ml/min/1.73 sqM); Albumin 4.2 g/dL (3.5-5.0); Alkaline Phosphatase 89 U/L (38-126); Anion Gap 10 mmol/L; Blood Urea Nitrogen 13 mg/dL (7-17); Calcium 9.3 mg/dL (8.4-10.2); Carbon Dioxide 27 mmol/L (22-30); Chloride 102 mmol/L (98-107); Glucose 90 mg/dL (74-99); Non-African American GFR(CKD) >90 (>60 ml/min/1.73 sqM); Sodium 139 mmol/L (137-145); Total Bilirubin 0.4 mg/dL (0.2-1.3); Total Protein 7.3 g/dL (6.3-8.2)
== END 2023-01-17 22:10 | disposition home or self-care (01) ==
LOC: EC 16:32
DX: R07.89 Other chest pain (principal); Z88.1 Allergy status to other antibiotic agents; Z88.2 Allergy status to sulfonamides
CPT/HCPCS: 36415; 71046; 80053; 83735; 84484; 85025; 85610; 85730; 93005; 99285

== ENCOUNTER → 2023-10-08 | Outpatient (CLI) | payer BC ==
--- NOTE | 2023-10-08 13:59 | MR ---
EXAMINATION TYPE: MR pelvis wo/w con DATE OF EXAM: 10/08/2023 7:23 AM CLINICAL INDICATION:Female, 53 years old with history of R19.09 intra abdominal and pelvic swelling/m ass; PHH, Pelvic pain and bleeding, abnormal US/CT. COMPARISON: Ultrasound 08/16/2023. CT 08/16/2023. TECHNIQUE: Triplane multisequence imaging was performed of the pelvis. IV Contrast: 11.5 cc Gadavist FINDINGS: Reproductive: Vagina: Unremarkable. Uterus: The uterus is anteverted in position. Uterus measures 13.4 x 7.5 x 8.2. The endometrium and j unctional zone are within normal limits. Multiple low T2 signal lesions are seen throughout the uteru s. The largest which impresses upon the endometrium measures up to 38 x 31 mm anteriorly and posterio rly measuring 31 mm. There is at least 2 exophytic posterior fibroids which are subserosal measuring up to 29 mm. Ovaries: What is thought to be the left ovary is situated anterior to the uterus and superior to the urinary bladder just left of midline. This area measures 59 x 38 x 33 mm it is predominantly low T1 l ower T2 signal.. No significant postcontrast enhancement identified. The right ovary is visualized measuring 27 x 17 x 20 mm with a follicle noted measuring up to 10 mm. Bladder: Unremarkable. Bowel: Scattered diverticula are seen throughout the sigmoid colon. Peritoneum: No free fluid identified. Lymph nodes: No evidence of adenopathy. Vasculature: Unremarkable. Musculoskeletal: Bone marrow signal is within normal signal intensity. Abdominal wall/soft tissues: Unremarkable. High T2 signal right renal cysts partial evaluation otherwise. The liver appears enlarged for size. IMPRESSION: 1. What is thought to represent the left ovary is situated anterior to the uterus and above the urin lm bladder. This structure is asymmetrically enlarged for size. . Given no significant flow within t his lesion there is a history of prior pain is could represent sequela of torsion from 08/16/2023 ultr asound. There is minimal enhancement of the ovary. Consider transabdominal ultrasound at the level of the urinary bladder for evaluation for flow within this structure. If there is a solid neoplasm in t his structure the differential for solid ovarian tumors is broad including epithelial tumors, germ ce ll tumors, sex cord tumors such as fibroma or fibrothecoma and thecoma versus others. This structure similar in size to 08/16/2023. 2. Fibroid uterus with multiple fibroids some of which impresses upon the endometrium and possibly h ave a submucosal component. 3. Endometrium within normal limits for for thickness.
== END | disposition home or self-care (01) ==
LOC: RADMRIMAIN 06:06
PROVIDERS: ATTEND Obstetrics & Gynecology
DX: D25.9 Leiomyoma of uterus, unspecified (principal); R19.09 Other intra-abdominal and pelvic swelling, mass and lump
CPT/HCPCS: 72197; A9585

== ENCOUNTER 2023-10-12 06:15 | Emergency (ER) | payer BC ==
[2023-10-12 06:56] VITALS: RESP 18
--- NOTE | 2023-10-12 07:25 | ED ---
General Adult HPI - General Chief complaint: Shortness of Breath Stated complaint: MOY when sleepiing Time Seen by Provider: 10/12/23 07:01 Source: patient, RN notes reviewed, old records reviewed Mode of arrival: ambulatory Limitations: no limitations - History of Present Illness Initial comments: 53-year-old female presenting with cough, congestion. Patient has had symptoms for the past 5 days. She has had nasal congestion, significant cough. Had fever at home. She states that this evening she was sleeping and woke up gasping for air because she was attempting to breathe through her congested nose. She has no prior history of asthma, no history of heart disease. No central chest pain. Symptoms are improved at the time my evaluation. - Related Data Home Medications Medication Instructions Recorded Confirmed Doxycycline Hyclate 100 mg PO BID 08/16/23 08/16/23 Famotidine 40 mg PO BID 08/16/23 08/16/23 Ibuprofen [Motrin] 600 mg PO DAILY PRN 08/16/23 08/16/23 Ketorolac [Toradol] 10 mg PO Q8H PRN 08/16/23 08/16/23 tiZANidine HCL 6 mg PO HS 08/16/23 08/16/23 Allergies Allergy/AdvReac Type Severity Reaction Status Date / Time sulfamethoxazole Allergy Anaphylaxis Verified 08/16/23 10:23 [From Bactrim] trimethoprim [From Bactrim] Allergy Anaphylaxis Verified 08/16/23 10:23 Review of Systems ROS Statement: Those systems with pertinent positive or pertinent negative responses have been documented in the HPI. ROS Other: All systems not noted in ROS Statement are negative. 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 History of Any Multi-Drug Resistant Organisms: None Reported Past Surgical History: Orthopedic Surgery, Tonsillectomy Additional Past Surgical History / Comment(s): brain surgery, ankle Past Anesthesia/Blood Transfusion Reactions: No Reported Reaction Past Psychological History: No Psychological Hx Reported Smoking Status: Never smoker Past Alcohol Use History: None Reported Past Drug Use History: None Reported General Exam Limitations: no limitations General appearance: alert, in no apparent distress Head exam: Present: atraumatic, normocephalic Eye exam: Present: normal appearance, PERRL ENT exam: Absent: normal oropharynx (Pharyngeal erythema) Neck exam: Present: normal inspection. Absent: tenderness Respiratory exam: Present: normal lung sounds bilaterally. Absent: respiratory distress, wheezes, rales, rhonchi Cardiovascular Exam: Present: regular rate, normal rhythm GI/Abdominal exam: Present: soft. Absent: distended Extremities exam: Present: normal inspection, normal capillary refill. Absent: pedal edema, calf tenderness Neurological exam: Present: alert, oriented X3 Psychiatric exam: Present: normal affect, normal mood Skin exam: Present: warm, dry, intact. Absent: cyanosis, diaphoretic Course Vital Signs 10/12/23 06:16 Temperature 98.1 F Pulse Rate 86 Respiratory 18 Rate Blood Pressure 174/89 O2 Sat by Pulse 98 Oximetry Medical Decision Making - Medical Decision Making Was pt. sent in by a medical professional or institution ([place], SOLAR INSTALLATION TECHNICIAN, urgent care, hospital, or prison...) When possible be specific @ -No Did you speak to anyone other than the patient for history (EMS, parent, family, police, friend...)? What history was obtained from this source @ -No Did you review nursing and triage notes (agree or disagree)? Why? @ -I reviewed and agree with nursing and triage notes Were old charts reviewed (outside hosp., previous admission, EMS record, old EKG, old radiological studies, urgent care reports/EKG's, prison records)? Report findings @ -No old charts were reviewed Differential Diagnosis: pneumonia, bronchitis, upper respiratory infection, sleep apnea EKG interpreted by me (3pts min.). @ -As above X-rays interpreted by me (1pt min.). @ -Chest x-ray negative for focal pneumonia, negative for pneumothorax, no pulmonary vascular congestion or CHF. CT interpreted by me (1pt min.). @ -None done U/S interpreted by me (1pt. min.). @ -None done What testing was considered but not performed or refused? (CT, X-rays, U/S, labs)? Why? @ -None What meds were considered but not given or refused? Why? @ -None Did you discuss the management of the patient with other professionals (professionals i.e. [place], SOLAR INSTALLATION TECHNICIAN, lab, RT, psych nurse, manager social services, belt line feeder, teacher, correctional security officer, shoe parts caser)? Give summary @ -No Was smoking cessation discussed for >3mins.? @ -No Was critical care preformed (if so, how long)? @ -No Were there social determinants of health that impacted care today? How? (Homelessness, low income, unemployed, alcoholism, drug addiction, transportation, low edu. Level, literacy, decrease access to med. care, assisted, rehab)? @ -No Was there de-escalation of care discussed even if they declined (Discuss DNR or withdrawal of care, Hospice)? DNR status @ -No What co-morbidities impacted this encounter? (DM, HTN, Smoking, COPD, CAD, Cancer, CVA, ARF, Chemo, Hep., AIDS, mental health diagnosis, sleep apnea, morbid obesity)? @ -None Was patient admitted / discharged? Hospital course, mention meds given and route, prescriptions, significant lab abnormalities, going to OR and other pertinent info. @ -53-year-old female presenting with 4 days of cough and congestion. Patient well-appearing with nasal congestion, clear lungs without hypoxia or respiratory distress. Vital signs are stable. Chest x-ray is clear. Viral panel is negative. I did instruct the patient to take a decongestant and have a humidifier in her bedroom. She will follow with her primary care provider given her risks for sleep apnea. Return parameters discussed. Undiagnosed new problem with uncertain prognosis? @ -No Drug Therapy requiring intensive monitoring for toxicity (Heparin, Nitro, Insulin, Cardizem)? @ -No Were any procedures done? @ -No Diagnosis/symptom? @ -Upper respiratory infection Acute, or Chronic, or Acute on Chronic? @ -Acute Uncomplicated (without systemic symptoms) or Complicated (systemic symptoms)? @ -Default Side effects of treatment? @ -No Exacerbation, Progression, or Severe Exacerbation? @ -No Poses a threat to life or bodily function? How? (Chest pain, [place], [place], pneumonia, PE, COPD, DKA, ARF, appy, cholecystitis, CVA, Diverticulitis, Homicidal, Suicidal, threat to staff... and all critical care pts) @ -Low risk at this time - Lab Data Lab Results 10/12/23 Range/Units 06:41 Influenza Type A (PCR) Not Detected (Not Detectd) Influenza Type B (PCR) Not Detected (Not Detectd) RSV (PCR) Not Detected (Not Detectd) SARS-CoV-2 (PCR) Not Detected (Not Detectd) Disposition Clinical Impression: Upper respiratory infection Disposition: HOME SELF-CARE Condition: Fair Instructions (If sedation given, give patient instructions): Upper Respiratory Infection (ED) Additional Instructions: Please follow-up with your primary care provider. You may benefit from sleep study. Is patient prescribed a controlled substance at d/c from ED?: No Referrals: Nonstaff,Physician [Primary Care Provider] - 1-2 days
--- NOTE | 2023-10-12 07:31 | XR ---
EXAMINATION TYPE: XR chest 2V DATE OF EXAM: 10/12/2023 COMPARISON: 01/17/2023 INDICATION: Difficulty in breathing TECHNIQUE: Frontal and lateral views of the chest are obtained. FINDINGS: The heart size is normal. The pulmonary vasculature is normal. The lungs are clear. IMPRESSION: 1. No acute pulmonary process.
[2023-10-12 08:28] VITALS: BP 151/92; PULSE 81; TEMP 97.9
== END 2023-10-12 08:16 | disposition home or self-care (01) ==
LOC: EC 06:15
DX: J06.9 Acute upper respiratory infection, unspecified (principal); Z88.1 Allergy status to other antibiotic agents; Z88.2 Allergy status to sulfonamides
CPT/HCPCS: 71046; 87636; 99285

== ENCOUNTER → 2024-01-22 | Outpatient (CLI) | payer BC ==
--- NOTE | 2024-01-22 08:39 | XR ---
EXAMINATION TYPE: XR lumbar spine 2 or 3V DATE OF EXAM: 01/22/2024 7:14 AM CLINICAL INDICATION:Female, 53 years old with history of M54.16 LUMBAR RADICULOPATHY; COMPARISON: None TECHNIQUE: XR lumbar spine 2 or 3V - Frontal, lateral and coned in L5-S1 lateral views of the spine. FINDINGS: No evidence of any acute osseous pathology. No evidence of loss of vertebral body height i s seen. There is normal alignment of the lumbar vertebral bodies. Scattered disc space narrowing. Mul tilevel marginal osteophyte formation throughout the visualized spine. There is facet joint arthropat hy throughout the spine. Scattered at least mild neural foraminal stenosis. IMPRESSION: 1. No acute fracture. 2. Mild multilevel disc degeneration.
--- NOTE | 2024-02-17 23:06 | MR ---
EXAMINATION TYPE: MR abdomen wo/w con DATE OF EXAM: 01/22/2024 6:59 AM CLINICAL INDICATION:Female, 53 years old with history of N28.89 OTHER SPECIFIED DISORDERS OF KIDNEY A ND URE; PHH, Right kidney mass, abnormal US/CT. COMPARISON: CT scan abdomen from CT abdomen pelvis 08/16/2023. TECHNIQUE: Multiplanar multi-sequence imaging was performed without contrast. Post contrast imaging was performed. IV Contrast: 11 cc Gadavist FINDINGS: LOWER CHEST: No gross irregularity. ABDOMEN Liver: No evidence for hepatic steatosis or cirrhosis. Elongated liver may represent hepatomegaly o r Cecilio's lobe (normal variant). Gallbladder and Bile ducts: No evidence for ductal dilation, or biliary stricture or evidence of chol edocholithiasis. The gallbladder is within normal limits. Pancreas: No ductal dilation. No evidence for solid mass. Spleen: Normal for size. Adrenal glands: Unremarkable. Kidneys: No evidence for obstructive uropathy. Fluid/fluid level. Hemorrhage layering or possibly pr oteinaceous material. No thickened gordillo Stomach and Bowel: No evidence for bowel wall thickening or evidence for obstruction. Retroperitoneum/Peritoneum: No evidence of pneumoperitoneum or free fluid. Vasculature: No aortic aneurysm. Musculoskeletal: The osseous structures appear intact. Lymph Nodes: No gross evidence for lymphadenopathy. Abdominal wall: Unremarkable. IMPRESSION: /Fluid level suggesting hemorrhage or proteinaceous material and likely minimally complicated cyst.
== END | disposition home or self-care (01) ==
LOC: RADMRIMAIN 06:01
PROVIDERS: ATTEND Psychiatry & Neurology Neurology
DX: N28.89 Other specified disorders of kidney and ureter (principal); M51.16 Intervertebral disc disorders with radiculopathy, lumbar region
CPT/HCPCS: 72100; 74183; A9585

== ENCOUNTER → 2024-04-09 | Outpatient (CLI) | payer BC ==
--- NOTE | 2024-04-09 17:51 | US ---
EXAMINATION TYPE: US pelvis complete transvag DATE OF EXAM: 04/09/2024 COMPARISON: US 2023 CLINICAL INDICATION: Female, 53 years old with history of R19.09 INTRA-ABDOMINAL AND PELVIC SWELLING; Left pelvic pain TECHNIQUE: . Transabdominal grayscale, color Doppler and spectral Doppler sonographic images of the pelvis were acquired. Transvaginal sonographic images were medically necessary to better assess the following anatomy: endometrium, ovaries FINDINGS: Date of LMP: couple years ago EXAM MEASUREMENTS: Uterus: 10.2 x 6.2 x 7.3 cm Endometrial Stripe: 0.5 cm Right Ovary: not seen Left Ovary: n/a 1. Uterus: anteverted, mildly enlarged, heterogeneous with multiple fibroids 2. Endometrium: appears wnl 3. Right Ovary: not seen due to overlying bowel gas 4. Left Ovary: not seen with certainty 5. Bilateral Adnexa: left adnexa - hypoechoic lesion adjacent to uterus measuring 6.3 x 4.1 x 4.1cm 6. Posterior cul-de-sac: wnl IMPRESSION: 1. Lesion in the left adnexa which is indeterminate. Further workup with MRI of the pelvis with IV c ontrast recommended. 2. Fibroid uterus. 3. Nonvisualization of the ovaries due to bowel gas. [facility], , 04/09/2024 5:49 PM
== END | disposition home or self-care (01) ==
LOC: RADUSWWP 16:31
PROVIDERS: ATTEND Obstetrics & Gynecology
CPT/HCPCS: 76830; 76856